=== PATIENT | female | born 1975 | race African-American/Black ===

== ENCOUNTER → 2016-06-07 | Outpatient (CLI) | payer OTHER ==
[~2016-06-07] MED LIST: ALBUTEROL0.83 MG/ML IH; ALBUTEROL17 GM INH; ALBUTEROL2.5 MG/0.5 IH; ALL DAY ALLERGY10 M3 PO; AMOXIL875 MG PO; BACTRIM DS TABL1 TA2 PO; BENZONATATE PO; BLOOD PRESSURE MED PO; CENTRUM PO; DOCUSATE SODIU100 MG PO; FERRO-TIME325 MG PO; FLEXERIL10 MG PO; GAS RELIEF 8080 M1 PO; IRON1 TAB; IRON1 TAB PO; KEFLEX500 MG PO; LIPITOR20 MG PO; LISINOPRIL20 MG PO; LORTAB 10 MG-3473 ML PO; MEDROL4 MG/DOSE- PO; MOTRIN PO; NO MEDICATIONS; PANTOPRAZOLE SO20 MG PO; PREDNISONE PO; PROMETHAZINE-D240 ML PO; ROBITUSSIN A-C10 ML PO; TRIAMTERENE-HC1 EAC1 PO; TYLENOL #3 PO; VITAMIN D2000 UNIT PO; VITAMIN D400 UNI2; VITAMIN D400 UNI2 PO; VOLTAREN75 MG PO; ZITHROMAX PO
--- NOTE | ~2016-06-07 | CR63 ---
[facility] A Service of [facility] & [facility] RADIOLOGY TEXT RESULTS PATIENT: RAY TONG LOCATION: [facility] : 77 UNIT #: [id number] AGE: [address]: Adis Chun MD SEX: F ORDER DR: [id number] [facility] [address] [place], [place] [address] [id number] O MR#: [id number] Acc #: [id number] NAME: RAY TONG : 1975 SEX: F STUDY DATE/TIME: 06/07/2016 7:49 UNIT: [facility] ROOM: STUDY DESCRIPTION: CR Chest 2 View Attending Physician: Adis Chun M.D. Referring Physician: Adis Chun M.D. Ordering Physician: Adis Chun M.D. Primary Care Physician: Arturo Cote M.D. MEDICAL IMAGING REPORT This report is preliminary unless electronic signature is present EXAM Chest PA and lateral 06/07/2016 HISTORY Morbid obesity. Preop laparoscopic gastric banding. Cough today. FINDINGS PA and lateral examination of the chest upright shows a good expansion of the parenchyma with a normal distribution of the pulmonary vascularity. There is no indication of congestion, effusion, infiltrate, tumor, or nodular density. The pleural reflections and diaphragmatic contours are normal. The cardiac silhouette and mediastinal anatomy is within normal limits. IMPRESSION Normal chest. Dictated by... Harsh Monteiro M.D. THIS IS AN ELECTRONICALLY VERIFIED REPORT Harsh Monteiro M.D. at 06/07/2016 5:33 PM KIRSTEN/stephanie TD: 06/07/2016 11:23 JOB #: [id number] MEDICAL IMAGING REPORT Page 1 of 1 COPY
--- NOTE | ~2016-06-07 | CR97 ---
[facility] A Service of [facility] & [facility] RADIOLOGY TEXT RESULTS PATIENT: RAY TONG LOCATION: [facility] : 77 UNIT #: [id number] AGE: [address]: Adis Chun MD SEX: F ORDER DR: [id number] [facility] [address] [place], [place] [address] [id number] O MR#: [id number] Acc #: [id number] NAME: RAY TONG : 1975 SEX: F STUDY DATE/TIME: 06/07/2016 8:16 UNIT: [facility] ROOM: STUDY DESCRIPTION: CR Esophagram Attending Physician: Adis Chun M.D. Referring Physician: Adis Chun M.D. Ordering Physician: Adis Chun M.D. Primary Care Physician: Arturo Cote M.D. MEDICAL IMAGING REPORT This report is preliminary unless electronic signature is present EXAM Esophagram 06/07/2016 HISTORY Planned Lap-Band surgery. TECHNIQUE Study performed with 6 spot images and 0.4 minutes of fluoroscopy. FINDINGS The esophagus is normal in course and caliber. There is no mass or stricture. IMPRESSION Normal esophagram. Dictated by... Cayetano Bazzi M.D. THIS IS AN ELECTRONICALLY VERIFIED REPORT Cayetano Bazzi M.D. at 06/11/2016 3:56 PM TEV/to TD: 06/10/2016 12:57 JOB #: [id number] MEDICAL IMAGING REPORT Page 1 of 1 COPY
--- NOTE | ~2016-06-07 | EKG ---
PATIENT: RAY TONG UNIT #: [id number] Ventricular Rate: 70 BPM Atrial Rate: 70 BPM P-R Interval: 176 ms QRS Duration: 102 ms Q-T Interval: 404 ms QTC Calculation(Bezet): 436 ms P [place]: 51 degrees Calculated R [place]: -24 degrees Calculated T [place]: 79 degrees Diagnosis Line: Normal sinus rhythm Diagnosis Line: Normal ECG Diagnosis Line: When compared with ECG of 30-MAR-2015 23:12, Diagnosis Line: No significant change was found Diagnosis Line: Confirmed by FELIBERTO VILLEGAS MD ([id number]) on Diagnosis Line: 06/08/2016 4:49:17 PM INTERPRETING MD: CORDELIA
[2016-06-07 10:02] LABS: HEMATOCRIT 34.2 % (35.0-45.0); HEMOGLOBIN 10.8 gm/dL (12.0-16.0); MEAN CELL VOLUME 78.2 FL (83-96); MEAN CORPUSCULAR HEMOGLOBIN 24.7 PG (28-34); MEAN CORPUSCULAR HGB CONC 31.5 g/dL (30-36); RED BLOOD COUNT 4.37 X10e (3.90-5.30); RED CELL DISTRIBUTION WIDTH 16.9 % (11.0-15.5); WHITE BLOOD COUNT 6.9 X10e3 (4.0-10.5)
[2016-06-07 10:43] LABS: ALBUMIN SERUM 3.9 g/dL (3.5-5.0); BILIRUBIN,TOTAL 0.3 mg/dL (0.2-2.0); BUN/CREATININE RATIO 13.75; CALCIUM SERUM 9.2 mg/dL (8.4-10.2); CREATININE SERUM 0.8 mg/dL (0.6-1.4); POTASSIUM 3.8 mmol/L (3.5-5.1); PROTEIN TOTAL SERUM 6.9 g/dL (6.0-8.3)
== END | disposition home or self-care (01) ==
LOC: CRAD 07:28
PROVIDERS: Surgery
DX: Z01.818 Encounter for other preprocedural examination (principal); E66.01 Morbid (severe) obesity due to excess calories
CPT/HCPCS: 36415; 71020; 74220; 80053; 80061; 84443; 85027; 93005

== ENCOUNTER → 2016-06-19 | Day surgery (SDC) | payer OTHER ==
--- NOTE | ~2016-06-19 | CR7 ---
[facility] A Service of [facility] & [facility] RADIOLOGY TEXT RESULTS PATIENT: RAY TONG LOCATION: [facility] : 77 UNIT #: [id number] AGE: [address]: Adis Chun MD SEX: F ORDER DR: [id number] [facility] [address] [place], [place] [address] [id number] O MR#: [id number] Acc #: [id number] NAME: RAY TONG : 1975 SEX: F STUDY DATE/TIME: 06/19/2016 11:14 UNIT: [facility] ROOM: STUDY DESCRIPTION: CR Abdomen Single AP View Attending Physician: Adis Chun M.D. Referring Physician: Adis Chun M.D. Ordering Physician: Adis Chun M.D. Primary Care Physician: Arturo Cote M.D. MEDICAL IMAGING REPORT This report is preliminary unless electronic signature is present EXAM KUB HISTORY Post Lap-Band surgery TECHNIQUE Single AP view of the abdomen was obtained. FINDINGS Postoperative changes of Lap-Band surgery are noted. The angle of the band with respect to the long axis of the spine is 63 degrees. The bowel gas pattern is normal. IMPRESSION Satisfactory postoperative examination. STAT * RESULT Dictated by... Ramón Samuels M.D. THIS IS AN ELECTRONICALLY VERIFIED REPORT Ramón Samuels M.D. at 06/19/2016 4:44 PM MONICA/na TD: 06/19/2016 11:57 JOB #: [id number] MEDICAL IMAGING REPORT Page 1 of 1 COPY
--- NOTE | ~2016-06-19 | OR ---
Unit #: [id number] #: [id number] Patient: RAY TONG [id number] [address] [address] [id number] O MR#: [id number] NAME: RAY TONG ROOM: Date of Procedure: 06/19/2016 Admission Date: 06/19/2016 Surgeon: Adis Chun M.D. : 1975 Attending Physician: Adis Chun M.D. Referring Physician: Adis Chun M.D. Primary Care Physician: Arturo Cote M.D. OPERATIVE REPORT PREOPERATIVE DIAGNOSIS Chronic morbid obesity, BMI of 39. POSTOPERATIVE DIAGNOSES 1. Chronic morbid obesity, BMI of 39. 2. Paraesophageal hiatal hernia. PROCEDURES PERFORMED 1. Laparoscopic adjustable gastric band. 2. Laparoscopic paraesophageal hiatal hernia repair. 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 ANESTHESIA General endotracheal anesthesia. ESTIMATED BLOOD LOSS Minimal. IV FLUIDS 800 crystalloid. COMPLICATIONS None. INDICATIONS FOR PROCEDURE The patient is a 41-year-old with chronic morbid obesity. DESCRIPTION OF PROCEDURE The patient was taken to the operating room and placed in supine position. General anesthesia was induced. The abdomen was prepped and draped. A 3-cm incision was then made left of the midline. A 10-mm Visiport was then placed intraabdominal under direct vision. The abdomen was insufflated to 15 mmHg with CO2. The patient was then placed in a steep reversed Trendelenburg. General inspection of the abdomen revealed what appeared to be a paraesophageal hernia. This was identified with a defect at the diaphragm using anterior palpation with the instrument. We then made a small incision in the subxiphoid region. A Luis Fernando liver retractor was then placed intraabdominal and used to retract the left lobe of the liver upward to further expose the paraesophageal hernia and GE junction. I then placed a 5-mm port in the right upper quadrant, a 10-mm Unit #: [id number] #: [id number] Patient: RAY TONG port in the left upper quadrant, and another 5-mm port in the left lower quadrant. The stomach was retracted medial and downward. Upon retracting the stomach, we took down the paraesophageal ligament, exposing the right and left neelam at the paraesophageal hernia. Any hernia sac was reduced. We then repaired the paraesophageal hernia using interrupted #0 Ethibond sutures in a [id number] type fashion. This formed a snug repair to the anterior esophagus. We then retracted the stomach medially and further exposed the angle of His using Bovie electrocautery. The stomach was then retracted laterally. We then took down the hepatogastric ligament with Bovie electrocautery. This exposed the right neelam. Using blunt dissection, I created a retrogastric tunnel from this point to the angle of His. The band was then placed intraabdominal through the 10-mm port site. This was then brought through the retrogastric tunnel in a pars flaccida technique. The band was then closed anteriorly to form a 20-mL to 25-mL anterior gastric pouch. The fundus was then secured to the anterior pouch to prevent movement around the stomach using two interrupted #0 Ethibond sutures. A third suture was then used as a gathering stitch from the lesser curve to the anterior stomach, gathering and imbricating the remaining fundus of the stomach. The tubing was then brought out through the midline 10-mm port site. All ports and the Luis Fernando liver retractor were removed under direct vision with no evidence of abdominal hemorrhage. A polypropylene mesh was then secured to the posterior face of the laparoscopic band port. This was secured using #0 Ethibond suture. This was then cut to shape. The port was then connected to the tubing and placed into a subcutaneous pocket just anterior to the rectus sheath. Its position was then confirmed. All tubing was then placed intraabdominal. The wounds were then closed with interrupted 4-0 Vicryl. The patient tolerated the procedure well and was sent to the recovery room in good condition. Dictated by... Gianna Caceres/reagan TD: 06/19/2016 16:34 JOB #: [id number] OPERATIVE REPORT Page 1 of 1 X Adis Chun MD PROCEDURE OPERATIVE NOTE
== END | disposition home or self-care (01) ==
LOC: CSUR 08:11
PROVIDERS: Surgery
PROC: 0BQS0ZZ (ICD-10-PCS; 2016-06-19)
PROC: 0BQR0ZZ (ICD-10-PCS; 2016-06-19)
PROC: 0DV64CZ Restriction of Stomach with Extraluminal Device, Percutaneous Endoscopic Approach (ICD-10-PCS; principal; 2016-06-19 08:00)
DX: E66.01 Morbid (severe) obesity due to excess calories (principal); K44.9 Diaphragmatic hernia without obstruction or gangrene
CPT/HCPCS: 74000; 84703; C1781; J0330; J0690; J1100; J1650; J1885; J2250; J2405; J3010

== ENCOUNTER 2016-07-04 21:32 | Emergency (ER) | payer OTHER ==
--- NOTE | ~2016-07-04 | CR72 ---
[facility] A Service of [facility] & [facility] RADIOLOGY TEXT RESULTS PATIENT: RAY TONG LOCATION: [facility] : [birth year] UNIT #: [id number] AGE: [address]: Yusuf Pappas MD SEX: F ORDER DR: [id number] [address] [address] [id number] E MR#: [id number] Acc #: [id number] NAME: RAY TONG : 1975 SEX: F STUDY DATE/TIME: 07/04/2016 21:56 UNIT: [facility] ROOM: STUDY DESCRIPTION: CR Chest Single View Portable Attending Physician: Yusuf Pappas M.D. Ordering Physician: Yusuf Pappas M.D. Primary Care Physician: Arturo Cote M.D. MEDICAL IMAGING REPORT This report is preliminary unless electronic signature is present. EXAM Portable chest. HISTORY Tachycardia and chest pain for 4 days. FINDINGS A single AP portable view of the chest shows both lungs to be clear. The heart is normal in size. The mediastinal contour is normal. No significant bone abnormalities are seen. IMPRESSION Normal portable chest. Dictated by... Brian Crowder M.D. THIS IS AN ELECTRONICALLY VERIFIED REPORT Brian Crowder M.D. at 07/05/2016 11:32 PM DAVIN/frances TD: 07/05/2016 02:33 JOB #: [id number] MEDICAL IMAGING REPORT Page 1 of 1
--- NOTE | ~2016-07-04 | EKG ---
PATIENT: RAY TONG UNIT #: [id number] Ventricular Rate: 75 BPM Atrial Rate: 75 BPM P-R Interval: 170 ms QRS Duration: 102 ms Q-T Interval: 378 ms QTC Calculation(Bezet): 422 ms P [place]: 43 degrees Calculated R [place]: 7 degrees Calculated T [place]: 58 degrees Diagnosis Line: Sinus rhythm with occasional Premature ventricular Diagnosis Line: complexes Diagnosis Line: Otherwise normal ECG Diagnosis Line: When compared with ECG of 07-JUN-2016 08:35, Diagnosis Line: Premature ventricular complexes are now Present Diagnosis Line: Confirmed by MEJIA RIOS MD ([id number]) on 07/05/2016 Diagnosis Line: 8:05:30 PM INTERPRETING MD: GABRIEL OLMSTEAD
[~2016-07-04 21:32] MED LIST changes: -CENTRUM PO; -DOCUSATE SODIU100 MG PO; -LIPITOR20 MG PO
[2016-07-04] MEDS ORDERED: DOCUSATE SODIU100 MG PO (21:44)
[2016-07-04] MEDS ORDERED: LIPITOR20 MG PO (21:44)
[2016-07-04] MEDS ORDERED: CENTRUM PO (21:44)
[2016-07-04 22:05] LABS: BASOPHIL% 0.2 % (0-2.5); EOSINOPHIL# 0.4 X10e3 (0-0.7); EOSINOPHIL% 5.1 % (0.0-7.0); HEMATOCRIT 35.1 % (35.0-45.0); HEMOGLOBIN 11.4 gm/dL (12.0-16.0); LYMPHOCYTE# 2.4 X10e3 (1.0-3.5); LYMPHOCYTE% 28.4 % (17.0-45.0); MEAN CELL VOLUME 78.1 FL (83-96); MEAN CORPUSCULAR HEMOGLOBIN 25.3 PG (28-34); MEAN CORPUSCULAR HGB CONC 32.4 g/dL (30-36); MEAN PLATELET VOLUME 9.4 FL (6.5-11.5); MONOCYTE# 0.6 X10e3 (0-1.0); MONOCYTE% 6.6 % (3.0-12.0); NEUTROPHIL# 5.1 X10e3 (1.5-7.1); NEUTROPHIL% 59.7 % (40-75); PLATELET COUNT 233 X10e3 (140-420); RED CELL DISTRIBUTION WIDTH 16.4 % (11.0-15.5); WHITE BLOOD COUNT 8.5 X10e3 (4.0-10.5)
[2016-07-04 22:09] LABS: DIFF IND NO
[2016-07-04 22:11] LABS: POC - CKMB <1.0 ng/mL (0.0-7.9); POC - TROPONIN <0.05 ng/mL (<=0.05)
[2016-07-04 22:15] LABS: URINE SOURCE CLEAN CATCH
[2016-07-04 22:18] LABS: URINE APPEARANCE CLEAR; URINE BILIRUBIN NEG (NEG); URINE BLOOD TRACE-LYSED (NEG); URINE COLOR YELLOW; URINE GLUCOSE NEG (NORM); URINE KETONE NEG (NEG); URINE LEUKOCYTE ESTERASE NEG (NEG); URINE NITRATE NEG (NEG); URINE PH 5.5 (5-8); URINE PROTEIN NEG (NEG); URINE SPECIFIC GRAVITY 1.025 (1.003-1.035); URINE UROBILINOGEN 0.2 MG/DL (NORM)
[2016-07-04 22:23] LABS: CULTURE INDICATED? NO; MICRO INDICATED? YES; URINE BACTERIA NEG (NEG); URINE MUCUS PRESENT; URINE SQUAMOUS EPITHELIAL CELL OCCAS /[HPF]
[2016-07-04 22:25] LABS: ALBUMIN SERUM 3.9 g/dL (3.5-5.0); BILIRUBIN,TOTAL 0.1 mg/dL (0.2-2.0); BUN/CREATININE RATIO 14.28; CALCIUM SERUM 9.9 mg/dL (8.4-10.2); CREATININE SERUM 0.7 mg/dL (0.6-1.4); GLOM FILT RATE Estimated 125.6 mL/min (>60); POTASSIUM 3.5 mmol/L (3.5-5.1); PROTEIN TOTAL SERUM 7.1 g/dL (6.0-8.3)
[2016-07-04 22:27] LABS: AMPHETAMINE NEG (NEG); BARBITURATES NEG (NEG); BENZODIAZEPINES NEG (NEG); COCAINE NEG (NEG); MARIJUANA NEG (NEG); OPIATES NEG (NEG); TRICYCLIC ANTIDEPRESSANTS NEG (NEG); U METHADONE NEG (NEG)
== END 2016-07-04 23:07 | disposition home or self-care (01) ==
LOC: SED 21:32
DX: I49.3 Ventricular premature depolarization (principal); I10 Essential (primary) hypertension; J45.909 Unspecified asthma, uncomplicated; F17.210 Nicotine dependence, cigarettes, uncomplicated; Z79.899 Other long term (current) drug therapy
CPT/HCPCS: 36415; 71010; 80053; 80307; 81003; 82553; 84443; 84484; 85025; 93005; 99283